=== PATIENT | female | born 1945 | race Caucasian/White ===

== ENCOUNTER 2017-03-04 00:23 | Emergency (ER) | payer MEDICARE ==
[~2017-03-04] VITALS: Ht 167.6 cm; Wt 64.4 kg
[2017-03-04] MEDS ORDERED: BP MED (00:41)
[2017-03-04] MEDS ORDERED: Silver Sulfadiazine Cream 25gm TOPIC ONE (01:00)
[2017-03-04 01:10] VITALS: BP 133/70
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
== END 2017-03-04 01:15 | disposition home or self-care (01) ==
LOC: EMR 00:55
DX: T23.021A Burn of unspecified degree of single right finger (nail) except thumb, initial encounter (principal); I10 Essential (primary) hypertension; K50.90 Crohn's disease, unspecified, without complications; Z88.1 Allergy status to other antibiotic agents; Z88.0 Allergy status to penicillin; X10.1XXA Contact with hot food, initial encounter; Y92.9 Unspecified place or not applicable; Y99.8 Other external cause status
CPT/HCPCS: 99282